=== PATIENT | male | born 1930 | race African-American/Black ===

== ENCOUNTER 2018-01-08 16:58 | Emergency (ER) | payer MEDICARE | END 2018-01-08 18:06 | disposition home or self-care (01) | LOC: ER 16:58 | DX: R21 Rash and other nonspecific skin eruption (principal); E11.9 Type 2 diabetes mellitus without complications; I10 Essential (primary) hypertension; M19.90 Unspecified osteoarthritis, unspecified site; Z98.890 Other specified postprocedural states; Z88.5 Allergy status to narcotic agent | CPT/HCPCS: 99283 ==

== ENCOUNTER 2018-01-19 07:29 | Emergency (ER) | payer MEDICARE ==
[2018-01-19 08:02] LABS: ADD MAN DIFF? NO
[2018-01-19 08:04] LABS: BASO # 0.1 x10^3/uL (0.0-0.2); BASO % 1 % (0-3); EOS # 0.1 x10^3/uL (0.0-0.7); EOS % 2 % (0-3); HEMATOCRIT 32.9 % (39.0-53.0); LYMPH # 1.6 x10^3/uL (1.0-4.8); LYMPH % 17 % (24-48); MEAN CORPUSCULAR HEMOGLOBIN 30 pg (25-35); MEAN CORPUSCULAR HGB CONC 33 g/dL (31-37); MEAN CORPUSCULAR VOLUME 89 fL (79-100); MONO # 0.8 x10^3/uL (0.0-1.1); MONO % 8 % (0-9); NEUT # 6.8 x10^3uL (1.8-7.7); NEUT % 73 % (31-73); PLATELET COUNT 226 x10^3/uL (140-400); RED BLOOD COUNT 3.72 x10^6/uL (4.30-5.70); RED CELL DISTRIBUTION WIDTH 15.3 % (11.5-14.5); WHITE BLOOD COUNT 9.4 x10^3/uL (4.0-11.0)
[2018-01-19] MEDS: INSULIN REGULAR 100 UNIT/ML 10ML VIAL. IV ×4 (08:12→11:34)
[2018-01-19] MEDS: IV NORMAL SALINE 1000ML BAG 1,000 ML IV ×3 (08:29→11:34)
[2018-01-19 08:54] LABS: ACETONE NEG (NEG)
[2018-01-19 08:55] LABS: ANION GAP 9 (6-14); BLOOD UREA NITROGEN 31 mg/dL (8-26); BUN/CREATININE RATIO 15 (6-20); CALCIUM 9.7 mg/dL (8.5-10.1); CARBON DIOXIDE 25 mmol/L (21-32); CHLORIDE 97 mmol/L (98-107); CREATININE 2.1 mg/dL (0.7-1.3); GFR 36.5; POTASSIUM 4.5 mmol/L (3.5-5.1); SODIUM 131 mmol/L (136-145)
[2018-01-19 08:58] LABS: ALBUMIN 2.8 g/dL (3.4-5.0); ALBUMIN/GLOBULIN RATIO 0.6 (1.0-1.7); ALK PHOS 153 U/L (46-116); ALT (SGPT) 26 U/L (16-63); AST (SGOT) 12 U/L (15-37); BILIRUBIN,URINE NEGATIVE (NEG); CLARITY,URINE CLEAR; COLOR,URINE YELLOW; GLUCOSE,URINE >=1000 mg/dL (NEG); NITRITE,URINE NEGATIVE (NEG); PROTEIN,URINE NEGATIVE (NEG-TRACE); TOTAL BILIRUBIN 0.7 mg/dL (0.2-1.0); TOTAL PROTEIN 7.6 g/dL (6.4-8.2); UROBILINOGEN,URINE 0.2 mg/dL (0.2 mg/dL)
[2018-01-19 09:11] LABS: BACTERIA,URINE 0 /HPF (0-FEW); RBC,URINE RARE /HPF (0-2); SQUAMOUS EPITHELIAL CELL,UR OCC /LPF; WBC,URINE 0 /HPF (0-4)
[2018-01-19 09:28] LABS: GLUCOSE 814 mg/dL (70-99)
[2018-01-19 10:38] LABS: POC GLUCOSE 521 mg/dL (70-99)
[2018-01-19 11:25] LABS: POC GLUCOSE 472 mg/dL (70-99)
[2018-01-19 12:22] LABS: POC GLUCOSE 357 mg/dL (70-99)
== END 2018-01-19 12:43 | disposition home or self-care (01) ==
LOC: ER 07:29
DX: E11.65 Type 2 diabetes mellitus with hyperglycemia (principal); I10 Essential (primary) hypertension; M19.90 Unspecified osteoarthritis, unspecified site; Z98.890 Other specified postprocedural states; Z79.4 Long term (current) use of insulin; Z88.1 Allergy status to other antibiotic agents
CPT/HCPCS: 36415; 71045; 80053; 81001; 82010; 82962; 85025; 96361; 96374; 96376; 99285-25; J1815; J7030

== ENCOUNTER 2019-03-28 00:02 | Emergency (ER) | payer MEDICARE ==
[~2019-03-28] VITALS: Ht 182.9 cm; Wt 92.5 kg
[~2019-03-28 00:02] MED LIST: AMLO10TA8 PO; HYDR-2145 PO; INSU100C4 SQ; INSU100I17 SQ; INSU100I27 SQ; LINA5TAB PO; LISI-130 PO; METO50TA6 PO; PRED50TA PO; TRIA15OI TP
--- NOTE | 2019-03-28 00:32 | PHYS DOC ---
Past Medical History Past Medical History: Arthritis, Diabetes-Type II, Hypertension, Other Additional Past Medical Histor: unknown kidney problem (AMANDA SANCHEZ APRN) Past Surgical History: Other Additional Past Surgical Histo: double hernia, circumcision (AMANDA SANCHEZ APRN) Alcohol Use: None Drug Use: None (AMANDA SANCHEZ APRN) Adult General Chief Complaint Chief Complaint: HYPERTENSION HPI HPI Patient is a 88 year old male who presents with hypertension at home. Patient reports he had checked his blood pressure at home on his machine and found to be 174/77 and was concerned because it has not been that high despite taking his daily blood pressure medicines. States no specific reason for checking his blood pressure may he just thought sitting on the desk by television and he decided to check it. Patient reports he rarely checks his blood pressure at home. 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 Reports he has been told he has good kidney function by his hair rooting machine operator does have primary care provider who is emerging his medications. Has been taking his medications without missing them recently. States that they have not adjusted his medicine doses for a long time. Patient states he is active and continues to work, walks forward a half to 5 miles each day. Patient states he feels fine denies any discomfort denies any shortness of breath denies any edema reports he only came in because he wanted his blood pressure checked again and he was concerned that it was high when he got here as well. Does report he did eat a large fairly he josh meal earlier today which he rarely does. (AMANDA SANCHEZ APRN) Review of Systems Review of Systems Constitutional: Denies fever or chills [] Eyes: Denies change in visual acuity, redness, or eye pain [] HENT: Denies nasal congestion or sore throat [] Respiratory: Denies cough or shortness of breath [] Cardiovascular: No additional information not addressed in HPI [] GI: Denies abdominal pain, nausea, vomiting, bloody stools or diarrhea [] : Denies dysuria or hematuria [] Musculoskeletal: Denies back pain or joint pain [] Integument: Denies rash or skin lesions [] Neurologic: Denies headache, focal weakness or sensory changes [] Endocrine: Denies polyuria or polydipsia [] All other systems were reviewed and found to be within normal limits, except as documented in this note. (AMANDA SANCHEZ APRN) Allergies Allergies Allergies Coded Allergies Type Severity Reaction Last Updated Verified sulfamethoxazole Allergy Intermediate 02/08/18 Yes trimethoprim Allergy Intermediate 02/08/18 Yes doxycycline Allergy Mild Hives 01/19/18 Yes (CELSO NUNEZ DO) Physical Exam Physical Exam Constitutional: Well developed, well nourished, no acute distress, non-toxic appearance. [] HENT: Normocephalic, atraumatic, bilateral external ears normal, oropharynx moist, no oral exudates, nose normal. [] Eyes: PERRLA, EOMI, conjunctiva normal, no discharge. [] Neck: Normal range of motion, no tenderness, supple, no stridor. [] Cardiovascular:Heart rate regular rhythm, no murmur [] Lungs & Thorax: Bilateral breath sounds clear to auscultation [] Abdomen: Bowel sounds normal, soft, no tenderness, no masses, no pulsatile masses. [] Skin: Warm, dry, no erythema, no rash. No lesions identified [] Back: No tenderness, no CVA tenderness. [] Extremities: No tenderness, no cyanosis, no clubbing, ROM intact, no edema. [] Neurologic: Alert and oriented X 3, normal motor function, normal sensory function, no focal deficits noted. [] Psychologic: Affect normal, judgement normal, mood normal. [] (AMANDA SANCHEZ APRN) Physical Exam Constitutional: Well developed, well nourished, no acute distress Neck: Normal range of motion, no tenderness, supple, Cardiovascular: Heart rate regular rhythm, no murmur [] Lungs & Thorax: Bilateral breath sounds clear to auscultation [] Neurologic: Alert and oriented X 3, no focal deficits noted. [] (CELSO NUNEZ DO) Current Patient Data Vital Signs Vital Signs Date Time Temp Pulse Resp B/P (MAP) Pulse Ox O2 Delivery O2 Flow Rate FiO2 03/28/19 01:39 65 18 97 03/28/19 00:30 98.3 198/88 (124) Room Air 98.3 (CELSO NUNEZ DO) Lab Values Laboratory Tests Test 03/28/19 00:40 White Blood Count 6.9 x10^3/uL (4.0-11.0) Red Blood Count 3.05 x10^6/uL (4.30-5.70) L Hemoglobin 9.0 g/dL (13.0-17.5) L Hematocrit 26.1 % (39.0-53.0) L Mean Corpuscular Volume 85 fL (79-100) Mean Corpuscular Hemoglobin 30 pg (25-35) Mean Corpuscular Hemoglobin Concent 35 g/dL (31-37) Red Cell Distribution Width 14.8 % (11.5-14.5) H Platelet Count 149 x10^3/uL (140-400) Neutrophils (%) (Auto) 53 % (31-73) Lymphocytes (%) (Auto) 32 % (24-48) Monocytes (%) (Auto) 7 % (0-9) Eosinophils (%) (Auto) 7 % (0-3) H Basophils (%) (Auto) 1 % (0-3) Neutrophils # (Auto) 3.7 x10^3uL (1.8-7.7) Lymphocytes # (Auto) 2.2 x10^3/uL (1.0-4.8) Monocytes # (Auto) 0.5 x10^3/uL (0.0-1.1) Eosinophils # (Auto) 0.5 x10^3/uL (0.0-0.7) Basophils # (Auto) 0.1 x10^3/uL (0.0-0.2) Urine Collection Type Unknown Urine Color Yellow Urine Clarity Clear Urine pH 6.0 Urine Specific [place] 1.010 Urine Protein Negative mg/dL (NEG-TRACE) Urine Glucose (UA) Negative mg/dL (NEG) Urine Ketones (Stick) Negative mg/dL (NEG) Urine Blood Trace (NEG) Urine Nitrite Negative (NEG) Urine Bilirubin Negative (NEG) Urine Urobilinogen Dipstick 0.2 mg/dL (0.2 mg/dL) Urine Leukocyte Esterase Negative (NEG) Urine RBC 1-2 /HPF (0-2) Urine WBC Occ /HPF (0-4) Urine Squamous Epithelial Cells Few /LPF Urine Bacteria 0 /HPF (0-FEW) Sodium Level 141 mmol/L (136-145) Potassium Level 4.1 mmol/L (3.5-5.1) Chloride Level 106 mmol/L (98-107) Carbon Dioxide Level 25 mmol/L (21-32) Anion Gap 10 (6-14) Blood Urea Nitrogen 23 mg/dL (8-26) Creatinine 1.6 mg/dL (0.7-1.3) H Estimated GFR (Cockcroft-Gault) 49.8 Glucose Level 135 mg/dL (70-99) H Calcium Level 8.9 mg/dL (8.5-10.1) Troponin I Quantitative < 0.017 ng/mL (0.000-0.055) Thyroid Stimulating Hormone (TSH) 2.617 uIU/mL (0.358-3.74) Laboratory Tests 03/28/19 00:40 Laboratory Tests 03/28/19 00:40 (CELSO NUNEZ DO) EKG EKG [] (AMANDA SANCHEZ APRN) Radiology/Procedures Radiology/Procedures [] (AMANDA SANCHEZ APRN) Course & Med Decision Making Course & Med Decision Making Pertinent Labs and Imaging studies reviewed. (See chart for details) [Reviewed recent labs from patient noted most recent creat seen here of 1.5. Also noted to have elevated TSH at 4.50. We'll recheck labs here today to ensure renal function is sufficient Care transferred to Dr. Nunez pending lab results. Patient currently has no complaints of discomfort at this time. (AMANDA SANCHEZ APRN) Course & Med Decision Making 0100- Patient seen and evaluated by myself. Concern for elevated blood pressure readings. Reports complaince with medications. Labs reviewed and without significant findings. Patient seen and evaluated by myself. Patient stable for discharge with close outpatient follow-up with PCP. Discussed findings and plan with patient, who acknowledges understanding and agreement. (CELSO NUNEZ DO) Dragon Disclaimer Dragon Disclaimer This electronic medical record was generated, in whole or in part, using a voice recognition dictation system. (AMANDA SANCHEZ APRN) Departure Departure Impression: Primary Impression: Hypertension Disposition: 01 HOME, SELF-CARE Condition: STABLE Patient Instructions: Hypertension Additional Instructions: Please follow closely with your family physician regarding your blood pressure. Attending Signature Attending Signature I have personally interviewed and examined the patient. All charts, labs, and imaging studies were reviewed. I agree with the PA/OUTBOUND SALES CONSULTANT's findings, exam, and plan. (CELSO NUNEZ DO) Problem Qualifiers Primary Impression: Hypertension Hypertension type: unspecified Qualified Codes: I10 - Essential (primary) hypertension AMANDA SANCHEZ APRN March 28, 2019 00:32 CELSO NUNEZ DO March 28, 2019 01:21
[2019-03-28 00:50] LABS: BASO # 0.1 x10^3/uL (0.0-0.2); BASO % 1 % (0-3); EOS # 0.5 x10^3/uL (0.0-0.7); EOS % 7 % (0-3); HEMATOCRIT 26.1 % (39.0-53.0); LYMPH # 2.2 x10^3/uL (1.0-4.8); LYMPH % 32 % (24-48); MEAN CORPUSCULAR HEMOGLOBIN 30 pg (25-35); MEAN CORPUSCULAR HGB CONC 35 g/dL (31-37); MEAN CORPUSCULAR VOLUME 85 fL (79-100); MONO # 0.5 x10^3/uL (0.0-1.1); MONO % 7 % (0-9); NEUT # 3.7 x10^3uL (1.8-7.7); NEUT % 53 % (31-73); PLATELET COUNT 149 x10^3/uL (140-400); RED BLOOD COUNT 3.05 x10^6/uL (4.30-5.70); RED CELL DISTRIBUTION WIDTH 14.8 % (11.5-14.5); WHITE BLOOD COUNT 6.9 x10^3/uL (4.0-11.0)
[2019-03-28 01:00] LABS: BILIRUBIN,URINE NEGATIVE (NEG); CALCIUM 8.9 mg/dL (8.5-10.1); CLARITY,URINE CLEAR; COLOR,URINE YELLOW; CREATININE 1.6 mg/dL (0.7-1.3); GFR 49.8; NITRITE,URINE NEGATIVE (NEG); POTASSIUM 4.1 mmol/L (3.5-5.1); PROTEIN,URINE NEGATIVE (NEG-TRACE); UROBILINOGEN,URINE 0.2 mg/dL (0.2 mg/dL)
[2019-03-28 01:06] LABS: WBC,URINE OCC /HPF (0-4)
[2019-03-28 01:07] LABS: BACTERIA,URINE 0 /HPF (0-FEW); SQUAMOUS EPITHELIAL CELL,UR FEW /LPF
[2019-03-28 01:39] VITALS: BP 170/74
== END 2019-03-28 01:40 | disposition home or self-care (01) ==
LOC: ER 00:02
DX: I10 Essential (primary) hypertension (principal); E11.9 Type 2 diabetes mellitus without complications; Z88.1 Allergy status to other antibiotic agents; Z88.2 Allergy status to sulfonamides
CPT/HCPCS: 36415; 80048; 81001; 84443; 84484; 85025; 99284